=== PATIENT | female | born 1995 | race Caucasian/White ===

== ENCOUNTER → 2022-09-20 12:52 | Outpatient (BNVA) | payer OTHER, SELFPAY | PROVIDERS: Visit Provider Registered Nurse Neonatal Intensive Care | DX: J02.9 Acute pharyngitis, unspecified (principal) | CPT/HCPCS: 87880 ==

== ENCOUNTER → 2022-11-28 13:09 | Outpatient (BNVA) | payer OTHER, SELFPAY | PROVIDERS: Visit Provider Nurse Practitioner Women's Health | DX: Z32.00 Encounter for pregnancy test, result unknown (principal); E66.9 Obesity, unspecified; Z86.32 Personal history of gestational diabetes; N92.6 Irregular menstruation, unspecified | CPT/HCPCS: 81025; 83036; 84315; 84443; 84702 ==

== ENCOUNTER → 2022-12-03 09:25 | Outpatient (BNVA) | payer OTHER, SELFPAY | PROVIDERS: Visit Provider Nurse Practitioner Women's Health | DX: R79.89 Other specified abnormal findings of blood chemistry (principal); Z34.90 Encounter for supervision of normal pregnancy, unspecified, unspecified trimester | CPT/HCPCS: 84439; 84443; 84702 ==

== ENCOUNTER → 2022-12-10 08:30 | Outpatient (BNVA) | payer OTHER, SELFPAY | PROVIDERS: Visit Provider Nurse Practitioner Women's Health | DX: O36.80X0 Pregnancy with inconclusive fetal viability, not applicable or unspecified (principal) | CPT/HCPCS: 84702 ==

== ENCOUNTER → 2022-12-17 09:29 | Outpatient (BNVA) | payer OTHER, SELFPAY | PROVIDERS: Visit Provider Obstetrics & Gynecology | DX: Z34.91 Encounter for supervision of normal pregnancy, unspecified, first trimester (principal); Z3A.01 Less than 8 weeks gestation of pregnancy | CPT/HCPCS: 76801 ==

== ENCOUNTER → 2023-01-08 15:11 | Outpatient (BNVA) | payer OTHER, SELFPAY | PROVIDERS: Visit Provider Obstetrics & Gynecology | DX: O09.899 Supervision of other high risk pregnancies, unspecified trimester (principal) | CPT/HCPCS: 80307; 82950; 84315; 85027; 86592; 86762; 86803; 86850; 86900; 87086; 87340; 87806 ==

== ENCOUNTER → 2023-02-15 13:22 | Outpatient (BNVA) | payer OTHER, SELFPAY | PROVIDERS: Visit Provider Nurse Practitioner Women's Health | DX: O09.899 Supervision of other high risk pregnancies, unspecified trimester (principal); Z12.4 Encounter for screening for malignant neoplasm of cervix | CPT/HCPCS: 84315; 87491; 87591; 87661; 88175 ==

== ENCOUNTER → 2023-02-18 08:45 | Outpatient (BNVA) | payer OTHER, SELFPAY | PROVIDERS: Visit Provider Obstetrics & Gynecology | DX: O09.899 Supervision of other high risk pregnancies, unspecified trimester (principal); Z3A.00 Weeks of gestation of pregnancy not specified | CPT/HCPCS: 82951; 82952; 84443 ==

== ENCOUNTER → 2023-03-21 14:25 | Outpatient (BNVA) | payer OTHER, SELFPAY | PROVIDERS: Visit Provider Obstetrics & Gynecology | DX: Z34.92 Encounter for supervision of normal pregnancy, unspecified, second trimester (principal); Z3A.21 21 weeks gestation of pregnancy | CPT/HCPCS: 76805 ==

== ENCOUNTER → 2023-05-02 14:23 | Outpatient (BNVA) | payer OTHER, SELFPAY | PROVIDERS: Visit Provider Obstetrics & Gynecology | DX: Z34.93 Encounter for supervision of normal pregnancy, unspecified, third trimester (principal); Z3A.27 27 weeks gestation of pregnancy | CPT/HCPCS: 76816 ==

== ENCOUNTER → 2023-05-20 13:39 | Outpatient (BNVA) | payer OTHER, SELFPAY | PROVIDERS: Visit Provider Obstetrics & Gynecology | DX: O09.899 Supervision of other high risk pregnancies, unspecified trimester (principal) | CPT/HCPCS: 82950; 84315 ==

== ENCOUNTER → 2023-05-28 09:33 | Outpatient (BNVA) | payer OTHER, SELFPAY | PROVIDERS: Visit Provider Obstetrics & Gynecology | DX: Z34.93 Encounter for supervision of normal pregnancy, unspecified, third trimester (principal); Z3A.31 31 weeks gestation of pregnancy | CPT/HCPCS: 76815; 76819 ==

== ENCOUNTER 2023-06-11 15:15 | Outpatient (CLI) | payer OTHER, SELFPAY ==
[2023-06-11 15:32] VITALS: BP 126/72; PULSE 98
[2023-06-11 15:52] VITALS: BP 127/71; PULSE 92
[2023-06-11 16:12] VITALS: BP 119/66; PULSE 96
== END 2023-06-11 16:23 | disposition home or self-care (01) ==
LOC: OPOB 15:24 → OBGYN 15:25
PROVIDERS: Visit Provider Obstetrics & Gynecology
DX: O24.419 Gestational diabetes mellitus in pregnancy, unspecified control (principal); Z3A.00 Weeks of gestation of pregnancy not specified
CPT/HCPCS: 59025; 84315; 99211

== ENCOUNTER 2023-06-14 14:27 | Outpatient (CLI) | payer OTHER, SELFPAY ==
[2023-06-14 14:37] VITALS: BP 134/78; PULSE 103; BMI 42.7
[2023-06-14 14:58] VITALS: BP 131/73; PULSE 96
== END 2023-06-14 15:07 | disposition home or self-care (01) ==
LOC: OPOB 14:32 → OBGYN 14:33
PROVIDERS: Visit Provider Obstetrics & Gynecology
DX: O24.419 Gestational diabetes mellitus in pregnancy, unspecified control (principal); Z3A.00 Weeks of gestation of pregnancy not specified
CPT/HCPCS: 59025

== ENCOUNTER 2023-06-17 15:22 | Outpatient (CLI) | payer OTHER, SELFPAY ==
[2023-06-17 15:27] VITALS: BP 135/76; PULSE 96
[2023-06-17 15:31] VITALS: RESP 18
[2023-06-17 15:52] VITALS: BP 131/74; PULSE 93
[2023-06-17 15:54] VITALS: RESP 18
== END 2023-06-17 16:01 | disposition home or self-care (01) ==
LOC: OPOB 15:22 → OBGYN 15:24
PROVIDERS: Visit Provider Obstetrics & Gynecology
DX: O24.419 Gestational diabetes mellitus in pregnancy, unspecified control (principal); Z3A.00 Weeks of gestation of pregnancy not specified
CPT/HCPCS: 59025; 84315; 99211

== ENCOUNTER 2023-06-20 16:02 | Outpatient (CLI) | payer OTHER, SELFPAY ==
[2023-06-20 16:24] VITALS: BP 137/74; PULSE 92
== END 2023-06-20 16:55 | disposition home or self-care (01) ==
LOC: OPOB 16:04 → OBGYN 16:15
PROVIDERS: Visit Provider Obstetrics & Gynecology
DX: O24.419 Gestational diabetes mellitus in pregnancy, unspecified control (principal); Z3A.00 Weeks of gestation of pregnancy not specified
CPT/HCPCS: 59025; 99211

== ENCOUNTER → 2023-06-24 13:52 | Outpatient (BNVA) | payer OTHER, SELFPAY | PROVIDERS: Visit Provider Obstetrics & Gynecology | DX: Z34.93 Encounter for supervision of normal pregnancy, unspecified, third trimester (principal); Z3A.35 35 weeks gestation of pregnancy | CPT/HCPCS: 76815; 76819 ==

== ENCOUNTER 2023-06-24 16:45 | Outpatient (CLI) | payer OTHER, SELFPAY ==
[2023-06-24 16:50] VITALS: RESP 16; TEMP 36; BMI 42.7
[2023-06-24 16:54] VITALS: BP 147/67; PULSE 95; TEMP 36
[2023-06-24 17:14] VITALS: BP 132/77; PULSE 99
[2023-06-24 17:20] VITALS: BP 132/77; PULSE 99
== END 2023-06-24 17:20 | disposition home or self-care (01) ==
LOC: OPOB 16:45 → OBGYN 16:46
PROVIDERS: Visit Provider Obstetrics & Gynecology
DX: O24.419 Gestational diabetes mellitus in pregnancy, unspecified control (principal); Z3A.00 Weeks of gestation of pregnancy not specified
CPT/HCPCS: 59025; 84315; 99211

== ENCOUNTER 2023-06-27 17:08 | Outpatient (CLI) | payer OTHER, SELFPAY ==
[2023-06-27 17:05] VITALS: BMI 43.0
[2023-06-27 17:16] VITALS: BP 137/79; PULSE 117
[2023-06-27 17:19] VITALS: RESP 16
[2023-06-27 17:31] VITALS: BP 128/67; PULSE 110
[2023-06-27 17:45] VITALS: BP 108/56; PULSE 102
[2023-06-27 17:53] VITALS: BP 108/56; PULSE 102
== END 2023-06-27 17:53 | disposition home or self-care (01) ==
LOC: OPOB 17:09 → OBGYN 17:09
PROVIDERS: Visit Provider Obstetrics & Gynecology
DX: O24.419 Gestational diabetes mellitus in pregnancy, unspecified control (principal); Z3A.00 Weeks of gestation of pregnancy not specified
CPT/HCPCS: 59025; 99211

== ENCOUNTER → 2023-07-01 13:36 | Outpatient (BNVA) | payer OTHER, SELFPAY | PROVIDERS: Visit Provider Obstetrics & Gynecology | DX: O09.93 Supervision of high risk pregnancy, unspecified, third trimester (principal); Z3A.35 35 weeks gestation of pregnancy | CPT/HCPCS: 76819 ==

== ENCOUNTER 2023-07-01 14:55 | Outpatient (CLI) | payer OTHER, SELFPAY ==
[2023-07-01 15:06] VITALS: BMI 42.7
[2023-07-01 15:19] VITALS: BP 120/65; PULSE 91
== END 2023-07-01 15:30 | disposition home or self-care (01) ==
LOC: OPOB 14:58 → OBGYN 15:05
PROVIDERS: Visit Provider Obstetrics & Gynecology
DX: O24.419 Gestational diabetes mellitus in pregnancy, unspecified control (principal); Z3A.00 Weeks of gestation of pregnancy not specified
CPT/HCPCS: 59025; 84315

== ENCOUNTER 2023-07-04 16:39 | Outpatient (CLI) | payer OTHER, SELFPAY ==
[2023-07-01 15:28] VITALS: RESP 18
[2023-07-04 16:46] VITALS: BP 130/81; PULSE 101; TEMP 35.6
[2023-07-04 16:51] VITALS: RESP 16; BMI 42.7
--- NOTE | 2023-07-04 18:12 | USR_ITS ---
PROCEDURE INFORMATION: Exam: US Biophysical Profile Without Non-Stress Test Exam date and time: 07/04/2023 7:03 PM Age: 27 years old Clinical indication: ; Patient HX: G2-p1 with non-reactive nst; Additional info: Non reactive nst TECHNIQUE: Imaging protocol: US biophysical profile without non-stress testing. COMPARISON: US OB BPP wo NST 81132 07/01/2023 1:39 PM FINDINGS: BIOPHYSICAL PROFILE: breathing movement (BPP): 2 out of 2. body movement (BPP): 2 out of 2. tone (BPP): 2 out of 2. Amniotic fluid (BPP): 2 out of 2. The amniotic fluid volume is within normal limits with an ROLAND measuring 16.1 cm. The heart rate is within normal limits measuring 107 bpm. The cervix is closed measuring 4.6 cm in length. US/US OB BPP wo NST [id number] IMPRESSION: Biophysical profile score is 8 out of 8.
[2023-07-04 18:42] VITALS: BP 143/87; PULSE 82
[2023-07-04 19:35] VITALS: BP 141/92; PULSE 85
[2023-07-04 20:15] VITALS: BP 141/92; PULSE 85
== END 2023-07-04 20:20 | disposition home or self-care (01) ==
LOC: OPOB 16:43 → OBGYN 16:43
PROVIDERS: Absent Provider Obstetrics & Gynecology; Visit Provider Obstetrics & Gynecology
DX: O24.419 Gestational diabetes mellitus in pregnancy, unspecified control (principal); Z3A.00 Weeks of gestation of pregnancy not specified
CPT/HCPCS: 59025; 76819; 99211

== ENCOUNTER 2023-07-05 08:30 | Outpatient (CLI) | payer OTHER, SELFPAY ==
[2023-07-05 08:30] VITALS: BMI 42.7
[2023-07-05 08:45] VITALS: TEMP 35.7
[2023-07-05 08:46] VITALS: BP 131/81; PULSE 89
== END 2023-07-05 09:41 | disposition home or self-care (01) ==
LOC: OPOB 08:37 → OBGYN 07-09 07:31
PROVIDERS: Visit Provider Obstetrics & Gynecology
DX: O46.90 Antepartum hemorrhage, unspecified, unspecified trimester (principal); Z3A.00 Weeks of gestation of pregnancy not specified
CPT/HCPCS: 59025; 99211

== ENCOUNTER → 2023-07-08 13:21 | Outpatient (BNVA) | payer OTHER, SELFPAY | PROVIDERS: Visit Provider Obstetrics & Gynecology | DX: O09.899 Supervision of other high risk pregnancies, unspecified trimester (principal); Z3A.36 36 weeks gestation of pregnancy | CPT/HCPCS: 76819 ==

== ENCOUNTER 2023-07-08 14:31 | Outpatient (CLI) | payer OTHER, SELFPAY ==
[2023-07-08 14:30] VITALS: BMI 42.9
[2023-07-08 14:39] VITALS: BP 142/69; PULSE 114
[2023-07-08 14:55] VITALS: BP 139/78; PULSE 96
[2023-07-08 15:09] VITALS: BP 128/77; PULSE 91
[2023-07-08 15:25] VITALS: BP 133/70; PULSE 93
[2023-07-08 15:39] VITALS: BP 130/68; PULSE 90
[2023-07-08 15:59] VITALS: BP 130/68; PULSE 90
== END 2023-07-08 15:45 | disposition home or self-care (01) ==
LOC: OPOB 14:32 → OBGYN 14:32
PROVIDERS: Visit Provider Obstetrics & Gynecology
DX: O16.9 Unspecified maternal hypertension, unspecified trimester (principal); Z3A.00 Weeks of gestation of pregnancy not specified
CPT/HCPCS: 59025; 84315; 87081; 99211

== ENCOUNTER 2023-07-11 16:38 | Outpatient (CLI) | payer OTHER, SELFPAY ==
[2023-07-11 16:48] VITALS: BP 133/72; PULSE 91
[2023-07-11 16:50] VITALS: BMI 43.2
[2023-07-11 17:09] VITALS: BP 135/70; PULSE 85
[2023-07-11 17:15] VITALS: BP 135/70; PULSE 85; RESP 18
== END 2023-07-11 17:15 | disposition home or self-care (01) ==
LOC: OPOB 16:38 → OBGYN 16:39
PROVIDERS: Absent Provider Obstetrics & Gynecology; Visit Provider Obstetrics & Gynecology
DX: O24.419 Gestational diabetes mellitus in pregnancy, unspecified control (principal); Z3A.00 Weeks of gestation of pregnancy not specified
CPT/HCPCS: 59025; 99211

== ENCOUNTER → 2023-07-15 13:17 | Outpatient (BNVA) | payer OTHER, SELFPAY | PROVIDERS: Visit Provider Obstetrics & Gynecology | DX: O09.899 Supervision of other high risk pregnancies, unspecified trimester (principal); Z3A.37 37 weeks gestation of pregnancy | CPT/HCPCS: 76815; 76819 ==

== ENCOUNTER 2023-07-15 14:42 | Outpatient (CLI) | payer OTHER, SELFPAY ==
[2023-07-15 14:47] VITALS: BP 132/69; PULSE 88
[2023-07-15 15:00] VITALS: BMI 43.0
== END 2023-07-15 15:25 | disposition home or self-care (01) ==
LOC: OPOB 14:43 → OBGYN 14:43
PROVIDERS: Visit Provider Obstetrics & Gynecology
DX: O24.419 Gestational diabetes mellitus in pregnancy, unspecified control (principal); Z3A.00 Weeks of gestation of pregnancy not specified
CPT/HCPCS: 59025; 84315

== ENCOUNTER 2023-07-18 15:01 | Outpatient (CLI) | payer OTHER, SELFPAY ==
[2023-07-18 15:13] VITALS: BP 134/77; PULSE 100
[2023-07-18 15:27] VITALS: BP 139/77; PULSE 96
== END 2023-07-18 15:38 | disposition home or self-care (01) ==
LOC: OPOB 15:01 → OBGYN 15:02
PROVIDERS: Visit Provider Obstetrics & Gynecology
DX: Z46.89 Encounter for fitting and adjustment of other specified devices (principal); M54.89 Other dorsalgia
CPT/HCPCS: 59025

== ENCOUNTER 2023-07-23 04:40 | Inpatient (IN) | payer OTHER, BC, SELFPAY ==
[2023-07-22] VITALS (34 sets, daily range): BP systolic 103–149; BP diastolic 53–86; PULSE 67–113; RESP 16; TEMP 36.6; O2SAT 98–100; BMI 43.6
[2023-07-22 17:56] LABS: Basophils % 0.4 %; Eosinophils # 0.1 10^3/uL (0.0-0.8); Eosinophils % 0.8 %; Hematocrit 32.2 % (36-47); Lymphocytes # 2.3 10^3/uL (0.8-4.8); Lymphocytes % 20.8 %; Mean Corpuscular HGB Conc 31.7 g/dL (30-55); Mean Corpuscular Hemoglobin 26.6 pg (27-33); Mean Corpuscular Volume 84.1 fl (85-98); Mean Platelet Volume 11.1 fL (7.4-10.4); Monocytes # 0.6 10^3/uL (0.2-0.9); Monocytes % 5.8 %; Neutrophils # 7.93 10^3/uL (1.8-7.7); Neutrophils % 71.5 %; Nucleated Red Blood Cells % 0 %; Platelet Count 260 10^3/cmm (157-399); Red Blood Count 3.83 10^6/uL (3.85-5.65); Red Cell Distribution Width 14.6 % (12.1-15.1); White Blood Count 11.09 10^3/uL (3.29-11.43)
[2023-07-22] MEDS: dextrose 5%-lactated ringers 1,000 ML 125 ML IV (18:26)
[2023-07-22] MEDS: oxytocin 30 UNIT/500 ML BAG IV (18:27)
--- NOTE | 2023-07-22 19:10 | PM.OBGYHP ---
Providers/Chief Complaint Admitting Physician: Len Parra MD Primary ORTHOPHOTOGRAPHY TECHNICIAN: Len Parra MD Chief Complaint: IOL HPI ORTHOPHOTOGRAPHY TECHNICIAN History of Present Illness OB ADMIT NOTE 27 y.o. EDC August 02, 2023 by 7-week sono At 38 w 3 d With persistent fasting hyperglycemia On insulin Now admitted for labor induction Has been receiving close testing Fetus has been reassuring throughout EFW by sono done July 15, 2023 was 3584 grams No c/o + active movements POBHx: 1. complicated by GDM, required insulin Was managed at [facility] Induced vaginal delivery, 7 lbs 6 oz, 3 y.o. PMHx: hypothyroidism PSHx: none Meds: levothyroxine Pepcid Vitamins insulin Present Details : 2 Para: 1 Labs Rubella: Immune RPR: Negative GBS: Negative Medications/Allergies Home Medications Medication Instructions Recorded Confirmed Last Taken Type acetaminophen 500 mg capsule 500 mg PO Q6H PRN Pain 11/28/22 07/15/23 06/17/23 07:30 History famotidine 20 mg tablet (Pepcid) 20 mg PO DAILY PRN Indigestion 11/28/22 07/15/23 06/17/23 07:30 History prenat.vits,michoacano,kgt-iuxg-ojzdf 1 tab PO DAILY 12/21/22 07/15/23 06/17/23 07:30 History blood-glucose meter #1 02/19/23 07/15/23 06/17/23 07:30 Rx blood sugar diagnostic (Accu-Chek #100 ea 02/26/23 07/15/23 06/17/23 07:30 Rx Guide test strips) insulin syringe,safetyneedle 0.5 #100 02/26/23 07/15/23 06/17/23 07:30 Rx mL 31 gauge x 15/64 (Assure ID Insulin Safety) lancets 31 gauge (Comfort Touch #100 02/26/23 07/15/23 06/17/23 07:30 Rx Ultra Thin Lancets) albuterol sulfate 90 mcg/actuation See Rx Instructions .Route 04/15/23 07/15/23 06/17/23 07:30 Rx aerosol inhaler .COMPLEX #6.7 grams insulin lispro 100 unit/mL 10 unit (0.1 mL) SUBCUT QAM #10 mL 05/27/23 07/15/23 06/17/23 07:30 Rx subcutaneous solution (Humalog U-100 Insulin) insulin NPH isoph U-100 human 100 8 unit (0.08 mL) SUBCUT DAILY #15 06/03/23 07/15/23 06/17/23 07:30 Rx unit/mL (3 mL) subcutaneous pen mL (Humulin N NPH U-100 Insulin KwikPen) insulin glargine 100 unit/mL (3 10 unit (0.1 mL) SUBCUT DAILY #15 06/11/23 07/15/23 06/17/23 07:30 Rx mL) subcutaneous pen (Lantus mL Solostar U-100 Insulin) Allergies Allergy/AdvReac Type Severity Reaction Status Date / Time No Known Allergies Allergy Verified 07/15/23 10:24 PFSH ORTHOPHOTOGRAPHY TECHNICIAN PFSH: Medical History Asthma exercise induced Hx gestational diabetes (~2019) managed with insulin-- in [place] She passed her PP 2hr GTT No pertinent past medical history neghx:htn,dm,thyroid,dvt/pe PCP: Unknown Surgical History No pertinent past surgical history Family History Father Diabetes Grandfather Diabetes paternal & Maternal Hypertension Maternal Grandmother Stroke Great Grandmother / Maternal Family/Other Diabetes Aunt Maternal Denies family history of Colon cancer Ovarian cancer Heart disease Hyperlipidemia Breast cancer Uterine cancer Thyroid disease History History History 2 Term 1 0 Miscarriages/Ectopic 0 Living Children 1 Care DENNIS Calculator Estimated Delivery Date Method Current WG Current Estimate 08/02/23 Ultrasound #1 38w 3d Other Estimates 08/05/23 LMP (Certain) 38w 0d Specific Issues/Plans HYPOTHYROIDISM-- currently at 25mcg at I HX GDM;managed with insulin; early GCT 184 plan 3-hour OBESITY--prepreg BMI 38.4% ASTHMA Vitals/I&O/Wt Last Vital Signs Temp 97.9 F 07/22/23 21:45 Pulse 113 H 07/22/23 23:45 Resp 16 07/22/23 17:42 BP 116/54 07/22/23 23:35 Pulse Ox 99 07/22/23 23:45 O2 Del Method Room Air 07/22/23 17:15 07/22/23 07/22/23 07/23/23 14:59 22:59 06:59 Intake Total 366.633 / 366.633 Balance 366.633 / 366.633 Weight last 48 hrs Weight 254 lb Physical Exam Narrative: Weight 251 lbs; 5?6? VS normal comfortable, awake, alert Lungs: clear Cor: RRR Abd: nontender FH 37 cm; cephalic Cx: 2 cm / 50% / -3 / posterior External monitor: heart tracing good variability, + accelerations Data 07/22/23 17:40 Results Labs OB ([facility]): Obstetrics US 05/02/23 Obstetrics US/Biophysical Profile 07/15/23 Blood Type A Positive 07/22/23 Antibody Screen Negative 07/22/23 Hct 32.2 % (36-47) L 07/22/23 Hgb 10.20 g/dL (11.27-16.99) L 07/22/23 Rho(D) Type Rh positive 07/22/23 Plt Count 260 10^3/cmm (157-399) 07/22/23 Hep Bs Antigen Non-reactive (Nonreactive) 01/08/23 Hep Bs Antibody 3.5 (11.5-1000) L 04/04/22 Hepatitis C Antibody Non-reactive (Nonreactive) 01/08/23 Rubella IgG Antibody 10.5 IU/mL (0.0-10.0) H 01/08/23 RPR Nonreactive (Nonreactive) 01/08/23 HIV 1&2 Ab & HIV 1 Ag Non-reactive (Non-Reactiv) 01/08/23 TSH 2.20 uIU/mL (0.27-4.20) 02/18/23 Free T4 0.92 ng/dL (0.82-1.77) 12/03/22 Cystic Fibrosis Screen Negative 01/08/23 Glucose 1 Hr 50 gm 184 mg/dL (85-140) H 01/08/23 Gest Glucose Tolerance 138 mg/dL (70-139) 05/20/23 Hemoglobin A1c 5.0 % (4.0-6.0) 11/28/22 VZV IgG Antibody <135.00 index L 04/04/22 Ser , Semi-Qnt 15247.00 mIU/mL 12/10/22 HCG, Qual Positive (Negative) H 11/28/22 Urine Opiates Screen Negative ng/mL (Negative) 01/08/23 Ur Barbiturates Screen Negative ng/mL (Negative) 01/08/23 Ur Phencyclidine Scrn Negative ng/mL (Negative) 01/08/23 Ur Amphetamines Screen Negative ng/mL (Negative) 01/08/23 U Benzodiazepines Scrn Negative ng/mL (Negative) 01/08/23 Urine Cocaine Screen Negative ng/mL (Negative) 01/08/23 U Marijuana (THC) Screen Negative ng/mL (Negative) 01/08/23 Micro Urine Specimen 01/08/23 Pap Smear Interpret See note 02/15/23 A&P Assessment and plan (1) Supervision of other high-risk : 38 w 3 d fetus reassuring (2) Gestational diabetes: Fasting hyperglycemia Fetus reassuring Admit for labor induction Plan start pitocin (3) Encounter for induction of labor: Fasting hyperglycemia Fetus reassuring Admit for labor induction Plan start pitocin Attestations Medical Necessity Statement*: patient at 38 w 3 d, gestational diabetes requiring insulin, admitted for labor induction Coding Level of Care Code Acute Code for Chg Fwd Diagnoses Supervision of other high-risk O09.899 Gestational diabetes O24.419 Encounter for induction of labor Z34.90 Time Spent (min) 30
[2023-07-22 21:19] LABS: Glucose Point of Care 112 mg/dL (70-110)
[2023-07-22] MEDS: lactated ringers 1,000 ML 999 ML IV (21:58)
[2023-07-22] MEDS: ROPivacaine syringe 100 MG/50 ML SYRINGE 10 MG EPIDURAL (23:32)
--- NOTE | 2023-07-22 23:38 | ANES.PREANE2 ---
Pre-Anesthetic Assessment Height/Weight: Height 1.63 m Weight 115.212 kg Temp Pulse Resp BP Pulse Ox O2 Del Method 97.9 F 100 16 116/54 99 Room Air 07/22/23 21:45 07/22/23 23:35 07/22/23 17:42 07/22/23 23:35 07/22/23 23:35 07/22/23 17:15 Preop Diagnosis: IUP Labor epidural Familial anesthetic complications: none Was Beta Marilu taken within 24 hours: N/A Was Clonidine taken within 24 hours: N/A Last intake: solid: 1500 07/22/23 Liquid: 2200 07/22/23 Social No alcohol and No tobacco Exam alert, oriented x 3, clear to auscultation bilaterally and regular rate & rhythm Airway Submandibular: within normal limits Mallampati: Class II Dentition: full History/ROS No significant history except as noted Pulmonary Asthma CV/HEM None reported None reported Hepatic None reported GI Gastroesophageal Reflux Disease Metabolic Diabetes Mellitus (GDM ) [facility] None reported Neuropsych None reported Anesthetic Plan ASA status: 2 Anesthesia: Anesthesia Evaluation and Regional (specify below) (epidural) Risk of > 500 ml blood loss (7ml/kg in children): No Medications/Allergies Home Medications Medication Instructions Recorded Confirmed Last Taken Type acetaminophen 500 mg capsule 500 mg PO Q6H PRN Pain 11/28/22 07/15/23 06/17/23 07:30 History famotidine 20 mg tablet (Pepcid) 20 mg PO DAILY PRN Indigestion 11/28/22 07/15/23 06/17/23 07:30 History prenat.vits,michoacano,iew-olww-tilvd 1 tab PO DAILY 12/21/22 07/15/23 06/17/23 07:30 History blood-glucose meter #1 ea 02/19/23 07/15/23 06/17/23 07:30 Rx blood sugar diagnostic (Accu-Chek #100 ea 02/26/23 07/15/23 06/17/23 07:30 Rx Guide test strips) insulin syringe,safetyneedle 0.5 #100 ea 02/26/23 07/15/23 06/17/23 07:30 Rx mL 31 gauge x 15/64 (Assure ID Insulin Safety) lancets 31 gauge (Comfort Touch #100 ea 02/26/23 07/15/2323 07:30 Rx Ultra Thin Lancets) albuterol sulfate 90 mcg/actuation See Rx Instructions .Route 04/15/23 07/15/23 06/17/23 07:30 Rx aerosol inhaler .COMPLEX #6.7 grams insulin lispro 100 unit/mL 10 unit (0.1 mL) SUBCUT QAM #10 mL 05/27/23 07/15/23 06/17/23 07:30 Rx subcutaneous solution (Humalog U-100 Insulin) insulin NPH isoph U-100 human 100 8 unit (0.08 mL) SUBCUT DAILY #15 06/03/23 07/15/23 06/17/23 07:30 Rx unit/mL (3 mL) subcutaneous pen mL (Humulin N NPH U-100 Insulin KwikPen) insulin glargine 100 unit/mL (3 10 unit (0.1 mL) SUBCUT DAILY #15 06/11/23 07/15/23 06/17/23 07:30 Rx mL) subcutaneous pen (Lantus mL Solostar U-100 Insulin) Allergies Allergy/AdvReac Type Severity Reaction Status Date / Time No Known Allergies Allergy Verified 07/15/23 10:24 Current Medications Generic Name Dose Route Start Last Admin Trade Name Freq PRN Reason Stop Dose Admin Dextrose/Lactated Ringer's 1,000 mls @ 125 mls/hr 07/22/23 17:45 07/22/23 21:15 Dextrose 5%-Lactated Ringers IV 114 mls/hr .Q8H CAROLINE Infusion Oxytocin 30 unit in 500 mls @ 1 mls/hr 07/22/23 18:15 07/22/23 21:15 Pitocin IV 11 milliunit/min .Q24H CAROLINE 11 mls/hr Titration Protocol 1 MILLIUNIT/MIN Lactated Ringer's 1,000 mls @ 999 mls/hr 07/22/23 21:46 07/22/23 21:58 Lactated Ringers IV 999 mls/hr .Q1H1M PRN Administration See label comments PFSH Anesthesia Medical History Asthma exercise induced Hx gestational diabetes (~2019) managed with insulin-- in [place] She passed her PP 2hr GTT No pertinent past medical history neghx:htn,dm,thyroid,dvt/pe PCP: Unknown Surgical History No pertinent past surgical history Family History Father Diabetes Grandfather Diabetes paternal & Maternal Hypertension Maternal Grandmother Stroke Great Grandmother / Maternal Family/Other Diabetes Aunt Maternal Denies family history of Colon cancer Ovarian cancer Heart disease Hyperlipidemia Breast cancer Uterine cancer Thyroid disease Female Reproductive History : 2 Data Anesthesia 07/22/23 17:40 Short CBC 07/22/23 Range/Units 17:40 WBC 11.09 (3.29-11.43) 10^3/uL Hgb 10.20 L (11.27-16.99) g/dL Hct 32.2 L (36-47) % MCV 84.1 L (85-98) fl Plt Count 260 (157-399) 10^3/cmm Neut % (Auto) 71.5 % Neut # (Auto) 7.93 H (1.8-7.7) 10^3/uL Blood Bank 07/22/23 17:40 Blood Type A Positive Rho(D) Type Rh positive Antibody Screen Negative Cardiac Studies: No Data to Display Anesthesia Procedures Epidural Time Out Performed: Yes Consents Signed: Procedure Consent Consent: requested by attending/covering physician, from patient, risks and benefits reviewed and patient agrees to proceed Lumbar Level: L4-L5 Epidural position: sitting Epidural procedure: sterile prep of area, 1% lidocaine to numb the area, 18 g needle, negative for paresthesia passed, neg for paresthesia, test dose given, 1.5% xylocaine 1:200k epi, 0.2% Ropivacaine bolus ml (5), placed PCEA, no systemic response, sterile dressing applied, L.U.D. no apparent complications and 0.2% Ropiavacaine @ mls/hr (10) Additional Comments: FRANNY 6cm, catheter easily threaded to 5cm in the space. Pt reports decreased pain with contractions, educated on MANAGER AUTO and all questions answered. Report to RN at bedside.
[2023-07-22] MEDS: ondansetron 2 mg/ML SDV 2 mL 4 MG IVP (23:57)
[2023-07-23] VITALS (39 sets, daily range): BP systolic 85–127; BP diastolic 49–81; PULSE 65–104; RESP 15–18; TEMP 35.5–36.9; O2SAT 97–99
[2023-07-23] MEDS: ROPivacaine syringe 100 MG/50 ML SYRINGE 10 MG EPIDURAL (04:09)
--- NOTE | 2023-07-23 05:35 | PM.OBGYPN ---
[employer] Subjective Subjective: Interval history: July 23, 2023, 0535 DELIVERY NOTE , vigorous Normal placenta and cord Cord gases and blood obtained Second-degree perineal laceration repaired EBL: 300 cc No complications Labor: Station: +1 Amniotic Membrane Status: Ruptured Monitor Mode: External Contraction Pattern: Regular Vitals/I&O/Wt Last Vital Signs Temp 98.2 F 07/24/23 10:23 Pulse 81 07/24/23 10:23 Resp 16 07/24/23 10:23 BP 143/82 07/24/23 10:23 Pulse Ox 97 07/24/23 10:23 O2 Del Method Room Air 07/24/23 04:00 Physical Exam Urinary Catheter Management: Harman Latex: Cath Placed During This Visit: yes, but has since been removed by the nurse Reason for Continuing Indwelling Catheter: Decision to DC Catheter Urinary Catheter Date of Insertion: 07/23/23 Urinary Catheter Time of Insertion: 00:43 Date Urinary Catheter Removed: 07/23/23 Time Urinary Catheter Discontinued: 04:20 Data 07/23/23 17:23 A&P Assessment and plan (1) Vaginal delivery: Attestations Medical Necessity Statement*: patient s/p vaginal delivery Coding Level of Care Code Acute Code for Chg Fwd Diagnoses Vaginal delivery O80 Time Spent (min) 60
--- NOTE | 2023-07-23 05:40 | PM.DELIVERY ---
Delivery Note: Date of delivery: July 23, 2023 Pre-delivery diagnoses: 38 w 3 d gestational diabetes labor induction Post-delivery diagnoses: 38 w 3 d gestational diabetes labor induction vaginal delivery second-degree perineal laceration repaired Procedure: labor induction vaginal delivery second-degree perineal laceration repaired Op report anesthesia: Epidural Delivering Physician: Len Parra MD Estimated blood loss (mL): 300 Findings: , vigorous infant Normal placenta and cord Cord gases and blood obtained Second-degree perineal laceration repaired EBL: 300 cc No complications Pre-Delivery Course: normal labor course Delivery: vaginal Post-Delivery Status: good History History History 2 Term 1 0 Miscarriages/Ectopic 0 Living Children 1 A&P Assessment and plan (1) Vaginal delivery: (2) Second degree perineal laceration: repaired Coding Level of Care Code Acute Code for Chg Fwd Diagnoses Vaginal delivery O80 Second degree perineal laceration O70.1 Time Spent (min) 60
[2023-07-23] MEDS: ibuprofen 800 mg tablet PO ×3 (09:43→21:10)
[2023-07-23] MEDS: docusate sodium 100 mg Capsule PO ×2 (09:43→18:09)
[2023-07-23] MEDS: prenatal vitamin Capsule 1 CAP PO (09:43)
[2023-07-23 17:44] LABS: Mean Corpuscular HGB Conc 30.9 g/dL (30-55); Mean Corpuscular Hemoglobin 27.1 pg (27-33); Mean Corpuscular Volume 87.7 fl (85-98); Platelet Count 237 10^3/cmm (157-399); Red Blood Count 3.65 10^6/uL (3.85-5.65); Red Cell Distribution Width 14.6 % (12.1-15.1); White Blood Count 13.21 10^3/uL (3.29-11.43)
[2023-07-24 04:00] VITALS: BP 113/70; PULSE 81; RESP 14; TEMP 36.6
--- NOTE | 2023-07-24 08:16 | ANE.PACU2 ---
Inpatient post-anesthesia follow up: Airway intact: Yes Vital signs: Temperature 97.9 F Pulse Rate 81 Respiratory Rate 14 Blood Pressure 113/70 Pulse Oximetry 97 Oxygen Delivery Me thod Room Air Oxygen Flow Rate Fraction of Inspir ed Oxygen Hydration adequate: Yes Nausea and vomiting: No Pain level: 2 Mental status: Baseline Additional Comments: Anes start 07/22/23 2300 Anes end 07/23/23 1929
[2023-07-24] MEDS: ibuprofen 800 mg tablet PO (08:36)
[2023-07-24] MEDS: docusate sodium 100 mg Capsule PO (08:36)
[2023-07-24] MEDS: prenatal vitamin Capsule 1 CAP PO (08:36)
[2023-07-24 10:23] VITALS: BP 143/82; PULSE 81; RESP 16; TEMP 36.8; O2SAT 97
--- NOTE | 2023-07-24 10:35 | PM.OBGYPN ---
[employer] Subjective Subjective: Interval history: no c/o no bleeding, pain eating, voiding, ambulating well caring for without any problems Labor: Station: +1 Amniotic Membrane Status: Ruptured Monitor Mode: External Contraction Pattern: Regular Vitals/I&O/Wt Last Vital Signs Temp 98.2 F 07/24/23 10:23 Pulse 81 07/24/23 10:23 Resp 16 07/24/23 10:23 BP 143/82 07/24/23 10:23 Pulse Ox 97 07/24/23 10:23 O2 Del Method Room Air 07/24/23 04:00 Physical Exam Narrative: afebrile, VS normal comfortable, awake, alert Abd: soft, nontender. fundus firm Ext: no edema; nontender Urinary Catheter Management: Harman Latex: Cath Placed During This Visit: yes, but has since been removed by the nurse Reason for Continuing Indwelling Catheter: Decision to DC Catheter Urinary Catheter Date of Insertion: 07/23/23 Urinary Catheter Time of Insertion: 00:43 Date Urinary Catheter Removed: 07/23/23 Time Urinary Catheter Discontinued: 04:20 Data 07/23/23 17:23 A&P Assessment and plan (1) Vaginal delivery: PPD #1 doing well discharge home today instructions and precautions given call/return if fever, chills, headache, blurry vision, nausea, vomiting, abdominal pain; vaginal bleeding or discharge; shortness of breath, chest pain, leg pains or swelling; inability to void, perineal pain or swelling; feelings of depression or mood changes; thoughts of suicide or harming others; inability to care for baby. f/u in 6 weeks or PRN (2) Second degree perineal laceration: repaired Attestations Medical Necessity Statement*: patient s/p vaginal delivery Coding Level of Care Code Acute Code for Chg Fwd Diagnoses Vaginal delivery O80 Second degree perineal laceration O70.1 Time Spent (min) 30
--- NOTE | 2023-07-24 10:40 | P.DS_ITS ---
Discharge Providers QUALITY ASSURANCE TESTER Date of Admission: 07/22/23 Date of Discharge: 07/24/23 Attending Provider at Admission: Len Parra MD Attending Provider at Discharge: Len Parra MD Consults: none Primary QUALITY ASSURANCE TESTER: Len Parra MD Diagnoses at Discharge Discharge Diagnosis (1) Vaginal delivery: Details from hospital stay: patient with GDM admitted at 38 w 3 d for labor induction had vaginal delivery with repair of second-degree perineal laceration Status: Acute (2) Second degree perineal laceration: Status: Acute Reason for Visit Reason for Visit: IOL Brief History: patient at 38 w 3 d GDM on insulin admitted for labor induction Hospital Course Hospital Course normal labor course vaginal delivery with repair of second-degree perineal laceration did well no complications Information Peripartum Data: Infant Delivery Method: Vaginal Laceration description: Perineal - 2nd Degree Episiotomy description: None complications: none Physical Exam Narrative: afebrile, VS normal comfortable, awake, alert Abd: soft, nontender. fundus firm Ext: no edema; nontender Urinary Catheter Management: Harman Latex: Cath Placed During This Visit: yes, but has since been removed by the nurse Reason for Continuing Indwelling Catheter: Decision to DC Catheter Urinary Catheter Date of Insertion: 07/23/23 Urinary Catheter Time of Insertion: 00:43 Date Urinary Catheter Removed: 07/23/23 Time Urinary Catheter Discontinued: 04:20 History History History 2 Term 1 0 Miscarriages/Ectopic 0 Living Children 1 Discharge Data Studies Completed and Pending Laboratory Results WBC 13.21 10^3/uL (3.29-11.43) H 07/23/23: RBC 3.65 10^6/uL (3.85-5.65) L 07/23/23 17: Hgb 9.90 g/dL (11.27-16.99) L 07/23/23 17: Hct 32.0 % (36-47) L 07/23/23 17: MCV 87.7 fl (85-98) 07/23/23 17: MCH 27.1 pg (27-33) 07/23/23 17: MCHC 30.9 g/dL (30-55) 07/23/23 17: RDW 14.6 % (12.1-15.1) 07/23/23 17:23 Plt Count 237 10^3/cmm (157-399) 07/23/23 17:23 MPV 11.0 fL (7.4-10.4) H 07/23/23 17:23 Neut % (Auto) 71.5 % 07/22/23 17:40 Lymph % (Auto) 20.8 % 07/22/23 17:40 [place] % (Auto) 5.8 % 07/22/23 17:40 Eos % (Auto) 0.8 % 07/22/23 17:40 Baso % (Auto) 0.4 % 07/22/23 17:40 Neut # (Auto) 7.93 10^3/uL (1.8-7.7) H 07/22/23 17:40 Lymph # (Auto) 2.3 10^3/uL (0.8-4.8) 07/22/23 17:40 [place] # (Auto) 0.6 10^3/uL (0.2-0.9) 07/22/23 17:40 Eos # (Auto) 0.1 10^3/uL (0.0-0.8) 07/22/23 17:40 Baso # (Auto) 0.0 10^3/uL (0.0-0.1) 07/22/23 17:40 Nucleated RBC % (auto) 0 % 07/22/23 17:40 Nucleated RBCs # 0.0 /100WBC 07/22/23 17:40 POC Glucose 112 mg/dL (70-110) H 07/22/23 21:06 Blood Type A Positive 07/22/23 17:40 Rho(D) Type Rh positive 07/22/23 17:40 Antibody Screen Negative 07/22/23 17:40 Procedures Performed labor induction vaginal delivery repair of second-degree perineal laceration Vitals Last Vital Signs Temp 98.2 F 07/24/23 10:23 Pulse 81 07/24/23 10:23 Resp 16 07/24/23 10:23 BP 143/82 07/24/23 10:23 Pulse Ox 97 07/24/23 10:23 O2 Del Method Room Air 07/24/23 04:00 Results Labs OB ([facility]): Obstetrics US 05/02/23 Obstetrics US/Biophysical Profile Blood Type A Positive 07/22/23 Antibody Screen Negative 07/22/23 Hct 32.0 % (36-47) L 07/23/23 Hgb 9.90 g/dL (11.27-16.99) L 07/23/23 Rho(D) Type Rh positive 07/22/23 Plt Count 237 10^3/cmm (157-399) 07/23/23 Hep Bs Antigen Non-reactive (Nonreactive) 01/08/23 Hep Bs Antibody 3.5 (11.5-1000) L 04/04/22 Hepatitis C Antibody Non-reactive (Nonreactive) 01/08/23 Rubella IgG Antibody 10.5 IU/mL (0.0-10.0) H 01/08/23 RPR Nonreactive (Nonreactive) 01/08/23 HIV 1&2 Ab & HIV 1 Ag Non-reactive (Non-Reactiv) 01/08/23 TSH 2.20 uIU/mL (0.27-4.20) 02/18/23 Free T4 0.92 ng/dL (0.82-1.77) 12/03/22 Cystic Fibrosis Screen Negative 01/08/23 Glucose 1 Hr 50 gm 184 mg/dL (85-140) H 01/08/23 Gest Glucose Tolerance 138 mg/dL (70-139) 05/20/23 Hemoglobin A1c 5.0 % (4.0-6.0) 11/28/22 VZV IgG Antibody <135.00 index L 04/04/22 Ser , Semi-Qnt 16269.00 mIU/mL 12/10/22 HCG, Qual Positive (Negative) H 11/28/22 Urine Opiates Screen Negative ng/mL (Negative) 01/08/23 Ur Barbiturates Screen Negative ng/mL (Negative) 01/08/23 Ur Phencyclidine Scrn Negative ng/mL (Negative) 01/08/23 Ur Amphetamines Screen Negative ng/mL (Negative) 01/08/23 U Benzodiazepines Scrn Negative ng/mL (Negative) 01/08/23 Urine Cocaine Screen Negative ng/mL (Negative) 01/08/23 U Marijuana (THC) Screen Negative ng/mL (Negative) 01/08/23 Micro Urine Specimen 01/08/23 Pap Smear Interpret See note 02/15/23 Discharge Plan Discharge Patient Disposition: Home Condition: Stable Prescriptions: Continued famotidine [Pepcid] 20 mg tablet 20 mg PO DAILY PRN (Reason: Indigestion) acetaminophen 500 mg capsule 500 mg PO Q6H PRN (Reason: Pain) prenat.vits,michoacano,fux-qapo-dxmii Tablet 1 tab PO DAILY albuterol sulfate 90 mcg/actuation HFA aerosol inhaler See Rx Instructions .ROUTE .COMPLEX Qty: 6.7 1RF Dose Instruction: INHALE TWO PUFFS BY MOUTH EVERY 6 HOURS as needed for SHORTNESS OF BREATH OR WHEEZING Rx Instructions: INHALE TWO PUFFS BY MOUTH EVERY 6 HOURS as needed for SHORTNESS OF BREATH OR WHEEZING Discontinued insulin lispro [Humalog U-100 Insulin] 100 unit/mL solution 10 unit SUBCUT QAM Qty: 10 0RF insulin glargine [Lantus Solostar U-100 Insulin] 100 unit/mL (3 mL) insulin pen 10 unit SUBCUT DAILY Qty: 15 0RF Rx Instructions: 14 UNITS DAILY AT 8PM Humulin N NPH Insulin KwikPen 100 unit/mL (3 mL) insulin pen 8 unit SUBCUT DAILY Qty: 15 0RF Rx Instructions: 8 UNITS DAILY AT 9:00 PM. No Action (DME) blood-glucose meter Kit See Rx Instructions .Route Qty: 1 0RF Rx Instructions: As directed (DME) Accu-Chek Guide test strips Strip See Rx Instructions .ROUTE .MEDSUPPLY Qty: 100 12RF Rx Instructions: As directed (DME) Comfort Touch Ult Thin Lancets 31 gauge misc See Rx Instructions .ROUTE .MEDSUPPLY Qty: 100 12RF Rx Instructions: As directed (DME) Assure ID Insulin Safety 0.5 mL 31 gauge x 15/64 syringe See Rx Instructions .Route Qty: 100 12RF Rx Instructions: As directed Discharge Orders: Discharge Order (Routine); Ordered 07/24/23 Ordered By: Len Parra Referrals: Len Parra MD [Physician] - 09/04/23 9:00 am () Discharge Diet: Usual diet Discharge Activity: Increase activity as tolerated Patient Instructions: Depression (DC), Bleeding (DC), Preeclampsia and Eclampsia After Delivery (GEN), Hemorrhage (DC), OB Discharge Report, OB Food/Drug Interaction Guide, OB Care at Home, Opioid Safety, OB Home Care, Abnormal Bleeding Discharge Attestations QUALITY ASSURANCE TESTER Time Spent in Discharge Care*: less than 30 min Coding Level of Care Code Acute Code for Chg Fwd Diagnoses Vaginal delivery O80 Second degree perineal laceration O70.1 Time Spent (min) 20
== END 2023-07-24 10:24 | disposition home or self-care (01) | DRG 807 ==
LOC: OPOB 07-29 07:20
PROVIDERS: Admitting Provider Obstetrics & Gynecology; Visit Provider Obstetrics & Gynecology
DX: O24.424 Gestational diabetes mellitus in childbirth, insulin controlled (principal); Z37.0 Single live birth; Z3A.38 38 weeks gestation of pregnancy; J45.990 Exercise induced bronchospasm; O99.52 Diseases of the respiratory system complicating childbirth; O99.284 Endocrine, nutritional and metabolic diseases complicating childbirth; E03.9 Hypothyroidism, unspecified; O99.214 Obesity complicating childbirth; E66.9 Obesity, unspecified; O70.1 Second degree perineal laceration during delivery
CPT/HCPCS: 36415; 36416; 51702; 59025; 59409; 82962; 85025; 85027; 86850; 86900; J2405; J2590; J2795; J7120; J7121